=== PATIENT | male | born 1950 | race Two or more races ===

== ENCOUNTER 2021-06-09 13:18 | Inpatient (IN) | payer MEDICAID, OTHER ==
[~2021-06-09] VITALS: Ht 185.4 cm; Wt 59.9 kg
[~2021-06-09 13:18] MED LIST: DIAZ2TAB2; OXYC5CAP17
[2021-06-09] MEDS ORDERED: dilTIAZem 25 MG/5 ML VIAL IV ONE ×2 (13:26→14:15)
[2021-06-09] MEDS ORDERED: SODIUM CHLORIDE 0.9% 1,000 ML IV ONE (13:45)
[2021-06-09] MEDS ORDERED: AMIODARONE HCL 150 MG in D5W 5% 100 ML IV ONE ×2 (13:45→15:30)
[2021-06-09] MEDS ORDERED: ASPirin 81 mg TAB PO ONE (13:45)
[2021-06-09] MEDS ORDERED: SODIUM CHLORIDE 0.9% 1,000 ML IVB ONE (13:45)
[2021-06-09] MEDS ORDERED: AMIODARONE 450mg/250ml AE 250 ML IV ONE (13:48)
[2021-06-09] MEDS ORDERED: AMIODARONE HCL (50 MG/ ML) 3 ML VIAL IV ONE ×2 (13:49→15:31)
[2021-06-09] MEDS ORDERED: AMIODARONE 450mg/250ml AE 250 ML IV SCH (14:00)
[2021-06-09 14:04] LABS: Basophils # (auto) 0 10 ^3/uL (0-0.2); Basophils % (auto) 0.5 % (0.0-2.0); Eosinophils # (auto) 0 10 ^3/uL (0-0.8); Eosinophils % (auto) 0.2 % (0.0-7.0); Hematocrit 40.8 % (41.0-53.0); Hemoglobin 13.9 g/dL (13.5-17.5); Lymphocytes # (auto) 2.2 10 ^3/uL (0.4-5.4); Lymphocytes % (auto) 25.3 % (10.0-50.0); Mean Corpuscular Hemoglobin 28.9 pg (28.0-32.0); Mean Corpuscular Volume 84.8 fL (80.0-100.0); Monocytes # (auto) 0.8 10 ^3/uL (0-1.3); Monocytes % (auto) 9.5 % (0.0-12.0); Neutrophils # (auto) 5.6 10 ^3/uL (1.6-8.6); Neutrophils % (auto) 64.5 % (37.0-80.0); Nucleated Red Blood Cells % 0.1 %; Red Blood Cells 4.81 10^6/uL (4.5-5.90); Red Cell Distribution Width 13.7 % (11.8-14.3); White Blood Cell 8.6 10^3/uL (4.4-10.8)
[2021-06-09 14:20] LABS: INR 1.28 (0.9-1.15); Partial Thromboplastin Time 29.4 sec (23.6-33.0)
[2021-06-09 14:23] LABS: Albumin 2.6 g/dL (3.4-5.0); BUN/Creatinine Ratio 16.3; Calcium 8.2 mg/dL (8.5-10.1); Potassium 3.7 mmol/L (3.5-5.1)
[2021-06-09 14:26] LABS: Total Protein 6.1 g/dL (6.4-8.2)
[2021-06-09] MEDS ORDERED: FUROSEMIDE 40 MG/4 ML VIAL IV ONE ×2 (16:15→23:45)
[2021-06-09] MEDS ORDERED: ACETAMINOPHEN 500 MG TAB PO ONE (16:15)
[2021-06-09] MEDS ORDERED: IOHEXOL 350 MG/ML 100ML IJ ONE (17:11)
[2021-06-09] MEDS ORDERED: NITROGLYCERIN 0.4 MG SL TAB SL PRN (17:30)
[2021-06-09] MEDS ORDERED: LACTULOSE 20Gm/30ML SOLN PO PRN (17:30)
[2021-06-09] MEDS ORDERED: MORPHINE SULFATE INJECTION 2 MG/ML SYRG IV PRN (17:30)
[2021-06-09] MEDS ORDERED: ACETAMINOPHEN 500 MG TAB PO PRN (17:30)
[2021-06-09] MEDS ORDERED: ONDANSETRON HCL 4 MG/2 ML VIAL IV PRN (17:30)
[2021-06-09 17:31] LABS: Urine WBC None Seen /hpf (0 - 3)
[2021-06-09 17:38] LABS: Urine Bacteria NONE SEEN /hpf (None Seen); Urine Blood Negative /uL (Negative); Urine Hyaline Cast FEW /lpf (0 - 2); Urine Mucus FEW (None Seen); Urine Specific Gravity 1.007 (1.001-1.035)
[2021-06-09] MEDS: ENOXAPARIN SOD 80 MG/0.8ML SYRINGE SC SCH (18:35)
[2021-06-09 19:27] LABS: Alcohol, Urine < 3.0 mg/dL (0-10); Amphetamine Screen, Urine NEGATIVE (NEGATIVE); Barbiturate Scree,Urine NEGATIVE (NEGATIVE); Benzodiazephine Screen, Urine NEGATIVE (NEGATIVE); Cannabinoid Screen, Urine NEGATIVE (NEGATIVE); Cocaine Screen, Urine NEGATIVE (NEGATIVE); Opiate Scree,Urine NEGATIVE (NEGATIVE); Phencyclidine Screen, Urine NEGATIVE (NEGATIVE)
[2021-06-09 19:29] VITALS: BP 101/72
[2021-06-09] MEDS ORDERED: LORazepam 2MG/ML-1ML VIAL IV ONE (19:30)
[2021-06-09] MEDS: METOPROLOL TARTRATE 25 MG TAB PO SCH (22:00)
[2021-06-09] MEDS: AMIODARONE 450mg/250ml AE 250 ML IV SCH (22:16)
[2021-06-09] MEDS: SODIUM CHLOR 0.9% PF (SALINE LOCK) 10ML VIAL/SYR IV SCH (22:18)
[2021-06-09 22:38] VITALS: BP 109/78
[2021-06-09] MEDS ORDERED: NOREPINEPHRINE 8 MG/250ML KIT 250 ML IV PRN (23:45)
[2021-06-09] MEDS: FUROSEMIDE 40 MG/4 ML VIAL IV SCH (23:49)
[2021-06-10] MEDS: MORPHINE SULFATE INJECTION 2 MG/ML SYRG IV PRN (03:29)
[2021-06-10 04:43] VITALS: BP 111/80
[2021-06-10 05:29] LABS: Basophils # (auto) 0.1 10 ^3/uL (0-0.2); Basophils % (auto) 0.8 % (0.0-2.0); Eosinophils # (auto) 0 10 ^3/uL (0-0.8); Eosinophils % (auto) 0.1 % (0.0-7.0); Hematocrit 44.4 % (41.0-53.0); Hemoglobin 15.2 g/dL (13.5-17.5); Lymphocytes # (auto) 1.8 10 ^3/uL (0.4-5.4); Lymphocytes % (auto) 19.4 % (10.0-50.0); Mean Corpuscular Hemoglobin 29.1 pg (28.0-32.0); Mean Corpuscular Hgb Conc. 34.1 g/dL (32.0-36.0); Mean Corpuscular Volume 85.1 fL (80.0-100.0); Monocytes # (auto) 0.9 10 ^3/uL (0-1.3); Monocytes % (auto) 10.2 % (0.0-12.0); Neutrophils # (auto) 6.4 10 ^3/uL (1.6-8.6); Neutrophils % (auto) 69.5 % (37.0-80.0); Nucleated Red Blood Cells % 0.3 %; Red Blood Cells 5.22 10^6/uL (4.5-5.90); Red Cell Distribution Width 13.9 % (11.8-14.3); White Blood Cell 9.1 10^3/uL (4.4-10.8)
[2021-06-10 05:51] VITALS: BP 104/78
[2021-06-10] MEDS: SODIUM CHLOR 0.9% PF (SALINE LOCK) 10ML VIAL/SYR IV SCH ×3 (06:00→21:59)
[2021-06-10 06:11] LABS: Albumin 2.8 g/dL (3.4-5.0); BUN/Creatinine Ratio 20.4; Bilirubin, Total 0.9 mg/dL (0.2-1.0); Calcium 9.1 mg/dL (8.5-10.1); Total Protein 6.6 g/dL (6.4-8.2)
[2021-06-10 09:48] VITALS: BP 105/69
[2021-06-10] MEDS ORDERED: POTASSIUM CHL 20 Meq TABLET PO SCH (10:00)
[2021-06-10] MEDS ORDERED: ENALAPRIL MALEATE 2.5 MG TAB PO SCH (10:00)
[2021-06-10] MEDS: AMIODARONE 450mg/250ml AE 250 ML IV SCH ×2 (11:00→22:18)
[2021-06-10] MEDS: ASPirin 81 mg TAB PO SCH (11:15)
[2021-06-10] MEDS: levoFLOXacin 500MG 100 ML IV SCH (11:15)
[2021-06-10] MEDS: METOPROLOL TARTRATE 25 MG TAB PO SCH ×2 (11:16→22:00)
[2021-06-10] MEDS: ENOXAPARIN SOD 80 MG/0.8ML SYRINGE SC SCH ×2 (11:19→22:00)
[2021-06-10 16:53] VITALS: BP 98/69
[2021-06-10 17:00] VITALS: BP 119/69
[2021-06-10 22:00] VITALS: BP 109/74
[2021-06-11 05:00] VITALS: BP 94/74
[2021-06-11] MEDS: SODIUM CHLOR 0.9% PF (SALINE LOCK) 10ML VIAL/SYR IV SCH ×3 (05:34→21:08)
[2021-06-11 08:36] VITALS: BP 98/72
[2021-06-11] MEDS: FUROSEMIDE 40 MG/4 ML VIAL IV SCH (09:08)
[2021-06-11] MEDS: levoFLOXacin 500MG 100 ML IV SCH (09:08)
[2021-06-11] MEDS: ASPirin 81 mg TAB PO SCH (09:09)
[2021-06-11] MEDS: METOPROLOL TARTRATE 25 MG TAB PO SCH ×2 (09:09→21:08)
[2021-06-11] MEDS: ENOXAPARIN SOD 80 MG/0.8ML SYRINGE SC SCH ×2 (09:10→21:08)
[2021-06-11 13:00] VITALS: BP 99/67
[2021-06-11 13:36] LABS: Free T3 13.8 pg/mL (2.3-4.2); Free T4 (Free Thyroxine) 4.34 ng/dL (0.89-1.76)
[2021-06-11 16:53] VITALS: BP 113/76
[2021-06-11] MEDS: AMIODARONE 450mg/250ml AE 250 ML IV SCH ×2 (17:00→21:08)
[2021-06-11] MEDS: MORPHINE SULFATE INJECTION 2 MG/ML SYRG IV PRN (21:09)
[2021-06-11 22:00] VITALS: BP 118/85
[2021-06-12] MEDS: MORPHINE SULFATE INJECTION 2 MG/ML SYRG IV PRN ×2 (02:07→21:27)
[2021-06-12 05:00] VITALS: BP 108/67
[2021-06-12] MEDS: SODIUM CHLOR 0.9% PF (SALINE LOCK) 10ML VIAL/SYR IV SCH ×3 (06:31→21:26)
[2021-06-12] MEDS: IPRATROPIUM BROM 0.5 MG/2.5ML INH SOL NEB PRN ×2 (07:05→19:18)
[2021-06-12] MEDS: ALBUTEROL SULF 2.5 MG/0.5ML(0.5%) NEB SOLN NEB PRN ×2 (07:06→19:18)
[2021-06-12 09:00] VITALS: BP 103/66
[2021-06-12] MEDS: FUROSEMIDE 40 MG/4 ML VIAL IV SCH (11:49)
[2021-06-12] MEDS: ENOXAPARIN SOD 80 MG/0.8ML SYRINGE SC SCH ×2 (11:50→21:27)
[2021-06-12] MEDS: ASPirin 81 mg TAB PO SCH (11:50)
[2021-06-12] MEDS: METOPROLOL TARTRATE 25 MG TAB PO SCH ×2 (11:50→21:26)
[2021-06-12 13:00] VITALS: BP 107/66
[2021-06-12] MEDS: AMIODARONE 450mg/250ml AE 250 ML IV SCH (13:01)
[2021-06-12] MEDS: levoFLOXacin 500MG 100 ML IV SCH (17:24)
[2021-06-12 18:40] VITALS: BP 107/66
[2021-06-12] MEDS ORDERED: IOHEXOL 350 MG/ML 100ML IJ ONE (21:08)
[2021-06-12 22:00] VITALS: BP 107/82
[2021-06-12 22:40] VITALS: BP 107/82
[2021-06-13 05:00] VITALS: BP 91/66
[2021-06-13] MEDS: SODIUM CHLOR 0.9% PF (SALINE LOCK) 10ML VIAL/SYR IV SCH ×3 (05:17→21:44)
[2021-06-13] MEDS: AMIODARONE 450mg/250ml AE 250 ML IV SCH ×2 (05:38→13:52)
[2021-06-13 09:00] VITALS: BP 88/62
[2021-06-13] MEDS: ENOXAPARIN SOD 80 MG/0.8ML SYRINGE SC SCH ×2 (10:00→21:45)
[2021-06-13] MEDS ORDERED: IOHEXOL 350 MG/ML 100ML IJ ONE (10:44)
[2021-06-13] MEDS ORDERED: methIMAzole 5 MG TAB PO ONE (12:15)
[2021-06-13 13:00] VITALS: BP 103/61
[2021-06-13] MEDS: ASPirin 81 mg TAB PO SCH (13:51)
[2021-06-13] MEDS: levoFLOXacin 500MG 100 ML IV SCH ×2 (13:51→17:05)
[2021-06-13] MEDS: METOPROLOL TARTRATE 25 MG TAB PO SCH ×2 (17:04→21:45)
[2021-06-13 20:00] VITALS: BP 102/68
[2021-06-13] MEDS: AMIODARONE HCL 200 MG TAB PO SCH (21:44)
[2021-06-13 22:00] VITALS: BP 102/68
[2021-06-13] MEDS: MORPHINE SULFATE INJECTION 2 MG/ML SYRG IV PRN (22:54)
[2021-06-14] MEDS: MORPHINE SULFATE INJECTION 2 MG/ML SYRG IV PRN (03:28)
[2021-06-14 05:00] VITALS: BP 100/46
[2021-06-14] MEDS: SODIUM CHLOR 0.9% PF (SALINE LOCK) 10ML VIAL/SYR IV SCH ×3 (05:35→22:10)
[2021-06-14 07:09] LABS: Potassium 3.4 mmol/L (3.5-5.1)
[2021-06-14 07:11] LABS: BUN/Creatinine Ratio 31.6; Calcium 8.6 mg/dL (8.5-10.1)
[2021-06-14 07:15] LABS: Basophils # (auto) 0 10 ^3/uL (0-0.2); Basophils % (auto) 0.2 % (0.0-2.0); Eosinophils # (auto) 0.1 10 ^3/uL (0-0.8); Eosinophils % (auto) 0.7 % (0.0-7.0); Hematocrit 38.8 % (41.0-53.0); Hemoglobin 13.2 g/dL (13.5-17.5); Lymphocytes # (auto) 2.6 10 ^3/uL (0.4-5.4); Lymphocytes % (auto) 31.2 % (10.0-50.0); Mean Corpuscular Volume 85.4 fL (80.0-100.0); Monocytes # (auto) 0.9 10 ^3/uL (0-1.3); Monocytes % (auto) 11.3 % (0.0-12.0); Neutrophils # (auto) 4.8 10 ^3/uL (1.6-8.6); Neutrophils % (auto) 56.6 % (37.0-80.0); Nucleated Red Blood Cells % 0.2 %; Red Blood Cells 4.54 10^6/uL (4.5-5.90); Red Cell Distribution Width 13.7 % (11.8-14.3); White Blood Cell 8.4 10^3/uL (4.4-10.8)
[2021-06-14 09:00] VITALS: BP 126/72
[2021-06-14] MEDS: METOPROLOL TARTRATE 25 MG TAB PO SCH ×2 (10:00→22:40)
[2021-06-14] MEDS: ENOXAPARIN SOD 80 MG/0.8ML SYRINGE SC SCH ×2 (10:00→22:11)
[2021-06-14] MEDS: ASPirin 81 mg TAB PO SCH (10:00)
[2021-06-14] MEDS: ALPRAZolam 0.25 MG TAB PO PRN (10:50)
[2021-06-14 13:00] VITALS: BP 97/48
[2021-06-14] MEDS: AMIODARONE HCL 200 MG TAB PO SCH ×2 (14:45→22:11)
[2021-06-14] MEDS: methIMAzole 5 MG TAB PO SCH (14:45)
[2021-06-14 18:04] VITALS: BP 104/93
[2021-06-14 20:00] VITALS: BP 103/66
[2021-06-14] MEDS ORDERED: POTASSIUM CHL 20 Meq TABLET PO ONE (20:30)
[2021-06-14] MEDS: FUROSEMIDE 40 MG/4 ML VIAL IV SCH (21:43)
[2021-06-14 22:00] VITALS: BP 99/66
[2021-06-15] VITALS (23 sets, daily range): BP systolic 83–133; BP diastolic 37–81
[2021-06-15] MEDS: MORPHINE SULFATE INJECTION 2 MG/ML SYRG IV PRN (01:13)
[2021-06-15] MEDS: SODIUM CHLOR 0.9% PF (SALINE LOCK) 10ML VIAL/SYR IV SCH ×3 (06:10→22:43)
[2021-06-15] MEDS ORDERED: AMIODARONE 450mg/250ml AE 250 ML IV ONE (08:34)
[2021-06-15] MEDS ORDERED: MAGNESIUM SULFATE 1GM/100ML 200 ML IV ONE (08:35)
[2021-06-15] MEDS ORDERED: AMIODARONE HCL 150 MG in D5W 5% 100 ML IV ONE (08:45)
[2021-06-15] MEDS: POTASSIUM CHL 10MEQ/50ML 50 ML IV SCH ×4 (08:54→11:45)
[2021-06-15] MEDS: MAGNESIUM SULFATE 1GM/100ML 100 ML IV SCH ×2 (09:13→10:30)
[2021-06-15] MEDS: AMIODARONE HCL 200 MG TAB PO SCH ×2 (10:00→22:44)
[2021-06-15] MEDS: LISINOPRIL 5 MG TAB PO SCH (10:00)
[2021-06-15] MEDS: FUROSEMIDE 40 MG/4 ML VIAL IV SCH (10:00)
[2021-06-15] MEDS ORDERED: FUROSEMIDE 40 MG/4 ML VIAL IV SCH (10:00)
[2021-06-15] MEDS: METOPROLOL TARTRATE 25 MG TAB PO SCH ×3 (11:37→22:44)
[2021-06-15] MEDS: ASPirin 81 mg TAB PO SCH (11:37)
[2021-06-15] MEDS: methIMAzole 5 MG TAB PO SCH (11:37)
[2021-06-15] MEDS: ENOXAPARIN SOD 80 MG/0.8ML SYRINGE SC SCH ×2 (11:37→22:44)
[2021-06-15] MEDS: LIDOCAINE 4MG/ML IV SOLN 500 ML IV SCH (12:00)
[2021-06-15] MEDS ORDERED: FUROSEMIDE 20 MG/2 ML VIAL IV ONE (16:15)
[2021-06-15 18:28] LABS: Basophils # (auto) 0 10 ^3/uL (0-0.2); Basophils % (auto) 0.3 % (0.0-2.0); Eosinophils # (auto) 0.1 10 ^3/uL (0-0.8); Eosinophils % (auto) 1.7 % (0.0-7.0); Hematocrit 39.8 % (41.0-53.0); Hemoglobin 13.9 g/dL (13.5-17.5); Lymphocytes # (auto) 2.3 10 ^3/uL (0.4-5.4); Lymphocytes % (auto) 32.9 % (10.0-50.0); Mean Corpuscular Hemoglobin 29.4 pg (28.0-32.0); Mean Corpuscular Hgb Conc. 34.9 g/dL (32.0-36.0); Mean Corpuscular Volume 84.2 fL (80.0-100.0); Monocytes # (auto) 0.7 10 ^3/uL (0-1.3); Monocytes % (auto) 10.8 % (0.0-12.0); Neutrophils # (auto) 3.8 10 ^3/uL (1.6-8.6); Neutrophils % (auto) 54.3 % (37.0-80.0); Nucleated Red Blood Cells % 0.5 %; Red Blood Cells 4.72 10^6/uL (4.5-5.90); Red Cell Distribution Width 13.9 % (11.8-14.3); White Blood Cell 6.9 10^3/uL (4.4-10.8)
[2021-06-15 18:29] LABS: Albumin 2.5 g/dL (3.4-5.0); Calcium 8.2 mg/dL (8.5-10.1); Potassium 4.4 mmol/L (3.5-5.1)
[2021-06-15 18:35] LABS: Bilirubin, Total 0.7 mg/dL (0.2-1.0); Magnesium 2.6 mg/dL (1.6-2.6); Phosphorus 3.4 mg/dL (2.5-4.90); Total Protein 5.7 g/dL (6.4-8.2)
[2021-06-16] VITALS (16 sets, daily range): BP systolic 75–121; BP diastolic 42–81
[2021-06-16] MEDS: SODIUM CHLOR 0.9% PF (SALINE LOCK) 10ML VIAL/SYR IV SCH ×3 (06:29→22:02)
[2021-06-16] MEDS: LIDOCAINE 4MG/ML IV SOLN 500 ML IV SCH (09:00)
[2021-06-16] MEDS: LISINOPRIL 5 MG TAB PO SCH (10:00)
[2021-06-16] MEDS ORDERED: FUROSEMIDE 20 MG/2 ML VIAL IV SCH (10:00)
[2021-06-16] MEDS: METOPROLOL TARTRATE 25 MG TAB PO SCH ×2 (10:00→22:03)
[2021-06-16] MEDS: AMIODARONE HCL 200 MG TAB PO SCH ×2 (10:23→22:02)
[2021-06-16] MEDS: ASPirin 81 mg TAB PO SCH (10:23)
[2021-06-16] MEDS: ENOXAPARIN SOD 80 MG/0.8ML SYRINGE SC SCH ×2 (10:25→22:03)
[2021-06-16 10:29] LABS: BUN/Creatinine Ratio 21.9; Calcium 8.6 mg/dL (8.5-10.1); Potassium 4.4 mmol/L (3.5-5.1)
[2021-06-16] MEDS: methIMAzole 5 MG TAB PO SCH (11:22)
[2021-06-16] MEDS: FUROSEMIDE 20 MG/2 ML VIAL IV SCH (18:37)
[2021-06-16] MEDS: traMADol HCL 50 MG TAB PO PRN (22:03)
[2021-06-17 05:00] VITALS: BP 97/57
[2021-06-17] MEDS: FUROSEMIDE 20 MG/2 ML VIAL IV SCH ×2 (06:00→18:20)
[2021-06-17] MEDS: SODIUM CHLOR 0.9% PF (SALINE LOCK) 10ML VIAL/SYR IV SCH ×3 (06:01→21:39)
[2021-06-17 06:26] LABS: BUN/Creatinine Ratio 21.1; Calcium 8.6 mg/dL (8.5-10.1); Magnesium 2.1 mg/dL (1.6-2.6)
[2021-06-17] MEDS: AMIODARONE HCL 200 MG TAB PO SCH ×2 (09:10→21:39)
[2021-06-17] MEDS: ASPirin 81 mg TAB PO SCH (09:10)
[2021-06-17] MEDS: ENOXAPARIN SOD 80 MG/0.8ML SYRINGE SC SCH ×2 (09:11→21:41)
[2021-06-17] MEDS: methIMAzole 5 MG TAB PO SCH (09:11)
[2021-06-17] MEDS: METOPROLOL TARTRATE 25 MG TAB PO SCH ×2 (09:11→21:40)
[2021-06-17] MEDS: DOBUTamine 1000MCG/ML 250 ML IV SCH (16:05)
[2021-06-17 17:00] VITALS: BP 111/76
[2021-06-17] MEDS: ALPRAZolam 0.25 MG TAB PO PRN (18:49)
[2021-06-17 22:00] VITALS: BP 108/56
[2021-06-18] MEDS: DOBUTamine 1000MCG/ML 250 ML IV SCH ×3 (02:32→23:54)
[2021-06-18 05:00] VITALS: BP 92/51
[2021-06-18] MEDS: FUROSEMIDE 20 MG/2 ML VIAL IV SCH ×2 (05:31→17:25)
[2021-06-18] MEDS: SODIUM CHLOR 0.9% PF (SALINE LOCK) 10ML VIAL/SYR IV SCH ×3 (05:31→22:10)
[2021-06-18 06:58] LABS: Calcium 8.3 mg/dL (8.5-10.1); Potassium 3.8 mmol/L (3.5-5.1)
[2021-06-18 09:00] VITALS: BP 84/51
[2021-06-18] MEDS: ASPirin 81 mg TAB PO SCH (10:00)
[2021-06-18] MEDS: METOPROLOL TARTRATE 25 MG TAB PO SCH ×2 (10:00→22:12)
[2021-06-18] MEDS: ENOXAPARIN SOD 80 MG/0.8ML SYRINGE SC SCH ×2 (10:00→22:00)
[2021-06-18] MEDS: AMIODARONE HCL 200 MG TAB PO SCH ×2 (10:00→22:10)
[2021-06-18] MEDS: methIMAzole 5 MG TAB PO SCH (10:00)
[2021-06-18 12:13] LABS: Basophils # (auto) 0 10 ^3/uL (0-0.2); Basophils % (auto) 0.6 % (0.0-2.0); Eosinophils # (auto) 0.1 10 ^3/uL (0-0.8); Eosinophils % (auto) 1.8 % (0.0-7.0); Hematocrit 42.2 % (41.0-53.0); Hemoglobin 14.1 g/dL (13.5-17.5); Lymphocytes % (auto) 30.5 % (10.0-50.0); Mean Corpuscular Hemoglobin 28.6 pg (28.0-32.0); Mean Corpuscular Hgb Conc. 33.3 g/dL (32.0-36.0); Mean Corpuscular Volume 86.1 fL (80.0-100.0); Monocytes # (auto) 0.6 10 ^3/uL (0-1.3); Monocytes % (auto) 9.1 % (0.0-12.0); Neutrophils # (auto) 3.8 10 ^3/uL (1.6-8.6); Nucleated Red Blood Cells % 0.2 %; Red Blood Cells 4.91 10^6/uL (4.5-5.90); Red Cell Distribution Width 14.2 % (11.8-14.3); White Blood Cell 6.5 10^3/uL (4.4-10.8)
[2021-06-18 12:27] LABS: INR 1.19 (0.9-1.15); Partial Thromboplastin Time 32.9 sec (23.6-33.0)
[2021-06-18 13:00] VITALS: BP 88/52
[2021-06-18 17:26] VITALS: BP 94/62
[2021-06-18 20:45] VITALS: BP 110/64
[2021-06-19] MEDS: traMADol HCL 50 MG TAB PO PRN ×2 (03:36→18:00)
[2021-06-19 05:09] VITALS: BP 102/58
[2021-06-19] MEDS: SODIUM CHLOR 0.9% PF (SALINE LOCK) 10ML VIAL/SYR IV SCH ×3 (05:59→22:51)
[2021-06-19] MEDS: FUROSEMIDE 20 MG/2 ML VIAL IV SCH ×2 (05:59→18:00)
[2021-06-19 09:00] VITALS: BP 105/64
[2021-06-19] MEDS: ASPirin 81 mg TAB PO SCH (10:00)
[2021-06-19] MEDS: methIMAzole 5 MG TAB PO SCH (10:00)
[2021-06-19] MEDS: METOPROLOL TARTRATE 25 MG TAB PO SCH ×2 (10:00→22:52)
[2021-06-19] MEDS: AMIODARONE HCL 200 MG TAB PO SCH ×2 (10:00→22:51)
[2021-06-19] MEDS: ENOXAPARIN SOD 80 MG/0.8ML SYRINGE SC SCH ×2 (10:00→22:52)
[2021-06-19 13:00] VITALS: BP 106/55
[2021-06-19 17:00] VITALS: BP 107/70
[2021-06-19] MEDS: DOBUTamine 1000MCG/ML 250 ML IV SCH (17:01)
[2021-06-19 22:00] VITALS: BP 109/63
[2021-06-20] MEDS: MORPHINE SULFATE INJECTION 2 MG/ML SYRG IV PRN (00:05)
[2021-06-20 05:00] VITALS: BP 115/71
[2021-06-20] MEDS: FUROSEMIDE 20 MG/2 ML VIAL IV SCH ×2 (05:49→18:00)
[2021-06-20] MEDS: SODIUM CHLOR 0.9% PF (SALINE LOCK) 10ML VIAL/SYR IV SCH ×3 (05:50→22:27)
[2021-06-20] MEDS: DOBUTamine 1000MCG/ML 250 ML IV SCH ×2 (06:58→22:27)
[2021-06-20 09:00] VITALS: BP 100/52
[2021-06-20] MEDS: methIMAzole 5 MG TAB PO SCH (10:00)
[2021-06-20] MEDS: ENOXAPARIN SOD 80 MG/0.8ML SYRINGE SC SCH ×2 (10:00→22:22)
[2021-06-20] MEDS: AMIODARONE HCL 200 MG TAB PO SCH ×2 (10:00→22:19)
[2021-06-20] MEDS: ASPirin 81 mg TAB PO SCH (10:00)
[2021-06-20] MEDS: METOPROLOL TARTRATE 25 MG TAB PO SCH ×2 (10:00→22:22)
[2021-06-20 13:00] VITALS: BP 126/76
[2021-06-20 17:00] VITALS: BP 137/83
[2021-06-20 22:00] VITALS: BP 132/58
[2021-06-20] MEDS: ALPRAZolam 0.25 MG TAB PO PRN (22:17)
[2021-06-21 05:00] VITALS: BP 103/53
[2021-06-21] MEDS: FUROSEMIDE 20 MG/2 ML VIAL IV SCH (05:24)
[2021-06-21] MEDS: SODIUM CHLOR 0.9% PF (SALINE LOCK) 10ML VIAL/SYR IV SCH ×2 (05:24→14:00)
[2021-06-21 09:00] VITALS: BP 98/35
[2021-06-21] MEDS: methIMAzole 5 MG TAB PO SCH (09:30)
[2021-06-21] MEDS: METOPROLOL TARTRATE 25 MG TAB PO SCH (09:41)
[2021-06-21] MEDS: AMIODARONE HCL 200 MG TAB PO SCH (09:41)
[2021-06-21] MEDS: ASPirin 81 mg TAB PO SCH (09:41)
[2021-06-21] MEDS: ENOXAPARIN SOD 80 MG/0.8ML SYRINGE SC SCH (09:42)
[2021-06-21] MEDS ORDERED: ASPI1CHW15 PO (11:04)
[2021-06-21] MEDS ORDERED: METH10TA6 PO (11:04)
[2021-06-21] MEDS ORDERED: FURO1TAB33 PO (11:04)
[2021-06-21] MEDS ORDERED: POTA10TA51 PO (11:04)
[2021-06-21] MEDS ORDERED: ATOR20TA PO (11:24)
[2021-06-21 12:46] VITALS: BP 126/76
[2021-06-21] MEDS: DOBUTamine 1000MCG/ML 250 ML IV SCH (13:00)
[2021-06-21 16:10] VITALS: BP 125/74
== END 2021-06-21 16:15 | disposition home or self-care (01) | DRG 190 ==
LOC: ER 13:18 → EDBD 13:18 → OVERFLOW 17:25 → TELE-WESTW 06-10 16:31 → ICU WEST 06-15 10:00 → TELE-CENTR 06-16 16:15
PROVIDERS: ADMIT Internal Medicine; ATTEND Internal Medicine
PROC: 5A09457 Assistance with Respiratory Ventilation, 24-96 Consecutive Hours, Continuous Positive Airway Pressure (ICD-10-PCS; 2021-06-09)
PROC: 05HB33Z Insertion of Infusion Device into Right Basilic Vein, Percutaneous Approach (ICD-10-PCS; 2021-06-13)
PROC: B54MZZA Ultrasonography of Right Upper Extremity Veins, Guidance (ICD-10-PCS; 2021-06-13)
PROC: 0W993ZZ Drainage of Right Pleural Cavity, Percutaneous Approach (ICD-10-PCS; principal; 2021-06-14)
PROC: 5A09357 Assistance with Respiratory Ventilation, Less than 24 Consecutive Hours, Continuous Positive Airway Pressure (ICD-10-PCS; 2021-06-14)
PROC: 0W9B3ZZ Drainage of Left Pleural Cavity, Percutaneous Approach (ICD-10-PCS; 2021-06-19)
DX: I21.4 Non-ST elevation (NSTEMI) myocardial infarction (principal); J96.01 Acute respiratory failure with hypoxia; I50.23 Acute on chronic systolic (congestive) heart failure; I47.2 Ventricular tachycardia; R64 Cachexia; E44.0 Moderate protein-calorie malnutrition; I95.9 Hypotension, unspecified; I82.612 Acute embolism and thrombosis of superficial veins of left upper extremity; D69.6 Thrombocytopenia, unspecified; D68.59 Other primary thrombophilia; I48.91 Unspecified atrial fibrillation; E05.90 Thyrotoxicosis, unspecified without thyrotoxic crisis or storm; E04.1 Nontoxic single thyroid nodule; F17.210 Nicotine dependence, cigarettes, uncomplicated; I71.4 Abdominal aortic aneurysm, without rupture; J43.9 Emphysema, unspecified; Z20.822 Contact with and (suspected) exposure to COVID-19; Z68.1 Body mass index [BMI] 19.9 or less, adult; Z86.16 Personal history of COVID-19; Z91.81 History of falling; Z71.6 Tobacco abuse counseling
CPT/HCPCS: 36415; 36600; 71045; 71260; 74177; 76536; 76604; 76942; 80048; 80053; 80061; 80307; 81001; 82550; 82805; 83735; 83880; 84100; 84439; 84443; 84481; 84484; 85025; 85379; 85610; 85652; 85730; 86141; 87040; 87081; 87205; 87426; 89051; 93005; 93306; 93970; 93971; 94640; 94660; 96361; 96365; 96375; 99291; G0378; J1956; J7060